=== PATIENT | female | born 1975 | race Caucasian/White ===

== ENCOUNTER 2024-11-25 13:29 | Emergency (ER) | payer BC, OTHER ==
[2024-11-25 14:03] VITALS: BP 116/76; PULSE 92; RESP 18; TEMP 97.8; BMI 21.9
[2024-11-25] MEDS ORDERED: CEPHALEXIN MONOHYDRATE 500 MG CAPSULE (UD) ONE (14:46)
[2024-11-25] MEDS: CEPHALEXIN MONOHYDRATE 500 MG CAPSULE (UD) PO ONE (14:47)
== END 2024-11-25 14:50 | disposition home or self-care (01) ==
LOC: FER 13:29
DX: Z48.02 Encounter for removal of sutures (principal)
CPT/HCPCS: 99281-25